=== PATIENT | male | born 1965 | race Caucasian/White ===

== ENCOUNTER → 2017-12-10 | Outpatient (CLI) | payer MEDICAID ==
[~2017-12-10] MED LIST: FURO40TA5 PO; SPIR100T3 PO
== END | disposition home or self-care (01) ==
LOC: LAB 09:45
PROVIDERS: ATTEND Internal Medicine Gastroenterology
DX: K74.60 Unspecified cirrhosis of liver (principal)
CPT/HCPCS: 36415; 82565; 84520

== ENCOUNTER → 2017-12-11 | Outpatient (CLI) | payer MEDICAID ==
[~2017-12-11] MED LIST changes: +IOPAMIDOL-370 75 ML VIAL IV ONE
== END | disposition home or self-care (01) ==
LOC: RAH 09:16
PROVIDERS: ATTEND Internal Medicine Gastroenterology
DX: D73.2 Chronic congestive splenomegaly (principal); J98.11 Atelectasis; I70.0 Atherosclerosis of aorta; M47.899 Other spondylosis, site unspecified; Z90.49 Acquired absence of other specified parts of digestive tract
CPT/HCPCS: 74170; Q9967

== ENCOUNTER → 2017-12-30 | Outpatient (CLI) | payer MEDICAID ==
[~2017-12-30] MED LIST changes: -IOPAMIDOL-370 75 ML VIAL IV ONE
== END ==
LOC: RAH 08:31
PROVIDERS: ATTEND Internal Medicine Gastroenterology
DX: K74.60 Unspecified cirrhosis of liver (principal)
CPT/HCPCS: 76700; 93975

== ENCOUNTER 2018-01-31 23:48 | Emergency (ER) | payer MEDICAID | END 2018-02-01 01:39 | disposition home or self-care (01) | LOC: EDH 23:48 | DX: M25.561 Pain in right knee (principal); Z88.6 Allergy status to analgesic agent; Z98.890 Other specified postprocedural states | CPT/HCPCS: 73562 ==

== ENCOUNTER → 2019-07-12 | Outpatient (CLI) | payer MEDICAID ==
[~2019-07-12] MED LIST changes: -SPIR100T3 PO; +SPIR100T5 PO
== END | disposition home or self-care (01) ==
LOC: RAH 08:44
PROVIDERS: ATTEND Internal Medicine Gastroenterology
DX: R16.1 Splenomegaly, not elsewhere classified (principal); K74.60 Unspecified cirrhosis of liver; Z90.49 Acquired absence of other specified parts of digestive tract
CPT/HCPCS: 76700; 93975

== ENCOUNTER 2019-07-30 05:32 | Day surgery (SDC) | payer MEDICAID ==
[~2019-07-30] VITALS: Ht 188 cm; Wt 105.7 kg
[~2019-07-30 05:32] MED LIST changes: +CALC1CAP19 PO; +LACT10SO8 PO; +NADO40TA19 PO; +PANT20TA12 PO; +RIFA550T PO; +ZINC50TA71 PO
[2019-07-30] MEDS ORDERED: SODIUM CHLORIDE 0.9% 1000ML 1,000 ML IV ONE (05:49)
[2019-07-30 06:33] VITALS: BP 120/69
[2019-07-30] MEDS ORDERED: PROPOFOL 10 MG/ML 20ML VIAL IV ONE (06:38)
[2019-07-30] MEDS ORDERED: CALC-909 PO (06:54)
[2019-07-30] MEDS ORDERED: CHOL400T4 PO (06:54)
[2019-07-30 09:32] VITALS: BP 115/84
[2019-07-30 09:37] VITALS: BP 119/81
[2019-07-30 09:41] VITALS: BP 117/87
[2019-07-30 09:48] VITALS: BP 125/72
== END 2019-07-30 09:55 | disposition home or self-care (01) ==
LOC: ENDO 05:32 → DAH 05:32 → ENDO 09:55
PROVIDERS: ATTEND Internal Medicine Gastroenterology
DX: Z12.11 Encounter for screening for malignant neoplasm of colon (principal); D12.5 Benign neoplasm of sigmoid colon; K57.30 Diverticulosis of large intestine without perforation or abscess without bleeding; K64.0 First degree hemorrhoids; K22.70 Barrett's esophagus without dysplasia; I85.00 Esophageal varices without bleeding; B18.2 Chronic viral hepatitis C; K74.60 Unspecified cirrhosis of liver; Z79.899 Other long term (current) drug therapy; I10 Essential (primary) hypertension; Z86.010 Personal history of colon polyps; Z90.49 Acquired absence of other specified parts of digestive tract; Z98.890 Other specified postprocedural states; Z88.8 Allergy status to other drugs, medicaments and biological substances
CPT/HCPCS: 45380; 88305; J2704; J7030

== ENCOUNTER 2019-12-08 05:52 | Day surgery (SDC) | payer MEDICAID ==
[~2019-12-08] VITALS: Ht 188 cm; Wt 108.9 kg
[~2019-12-08 05:52] MED LIST changes: +CALC-909 PO; +CHOL400T4 PO; +LACT10SO62 PO; -LACT10SO8 PO
[2019-12-08] MEDS ORDERED: SODIUM CHLORIDE 0.9% 1000ML 1,000 ML IV ONE (06:17)
[2019-12-08 06:23] VITALS: BP 109/73
[2019-12-08] MEDS ORDERED: SODIUM CHLORIDE 0.9% 10 ML VIAL ONE (08:09)
[2019-12-08] MEDS ORDERED: MIDAZOLAM HCL 1 MG/ML 2ML VIAL ONE (08:09)
[2019-12-08] MEDS ORDERED: PROPOFOL 10 MG/ML 20ML VIAL IV ONE (08:09)
[2019-12-08] MEDS ORDERED: LIDOCAINE HCL 2% 20ML ONE (08:09)
[2019-12-08 08:26] VITALS: BP 100/65
[2019-12-08 08:41] VITALS: BP 99/54
[2019-12-08 08:56] VITALS: BP 108/68
== END 2019-12-08 08:50 | disposition home or self-care (01) ==
LOC: ENDO 05:52 → DAH 05:52 → ENDO 08:50
PROVIDERS: ATTEND Internal Medicine Gastroenterology
DX: I85.00 Esophageal varices without bleeding (principal); K31.89 Other diseases of stomach and duodenum; K29.70 Gastritis, unspecified, without bleeding; K74.60 Unspecified cirrhosis of liver; I10 Essential (primary) hypertension; Z88.8 Allergy status to other drugs, medicaments and biological substances; Z79.899 Other long term (current) drug therapy; Z86.010 Personal history of colon polyps; Z90.49 Acquired absence of other specified parts of digestive tract; Z98.890 Other specified postprocedural states; Z72.89 Other problems related to lifestyle; Z87.891 Personal history of nicotine dependence; Z82.5 Family history of asthma and other chronic lower respiratory diseases
CPT/HCPCS: 43239; 88305; A4215; A4221; A4222; A4223; A4606; A4620; A4663; J2250; J2704; J3490; J7030

== ENCOUNTER → 2019-12-23 | Outpatient (CLI) | payer MEDICAID ==
[~2019-12-23] MED LIST changes: +GADODIAMIDE 10 MMOL/20 ML VIAL IV ONE
== END | disposition home or self-care (01) ==
LOC: RAH 07:58
PROVIDERS: ATTEND Internal Medicine Gastroenterology
DX: N28.1 Cyst of kidney, acquired (principal); R16.1 Splenomegaly, not elsewhere classified; K74.60 Unspecified cirrhosis of liver; R97.8 Other abnormal tumor markers; Z90.49 Acquired absence of other specified parts of digestive tract
CPT/HCPCS: 74183; A9579

== ENCOUNTER 2020-03-13 19:47 | Emergency (ER) | payer MEDICAID ==
[~2020-03-13 19:47] MED LIST changes: -GADODIAMIDE 10 MMOL/20 ML VIAL IV ONE
[2020-03-13] MEDS ORDERED: LIDOCAINE HCL 1% 20 ML VIAL ONE (20:06)
[2020-03-13] MEDS ORDERED: CEFAZOLIN SODIUM 1 GM VIAL ONE (21:24)
[2020-03-13] MEDS ORDERED: ACETAMINOPHEN-CODEINE 300/30MG TAB ONE (21:51)
== END 2020-03-13 22:09 | disposition home or self-care (01) ==
LOC: EDH 19:47
DX: S62.644B Nondisplaced fracture of proximal phalanx of right ring finger, initial encounter for open fracture (principal); S60.452A Superficial foreign body of right middle finger, initial encounter; Z88.6 Allergy status to analgesic agent; Z90.49 Acquired absence of other specified parts of digestive tract; W29.4XXA Contact with nail gun, initial encounter; Y92.098 Other place in other non-institutional residence as the place of occurrence of the external cause; Y99.8 Other external cause status; Y93.89 Activity, other specified
CPT/HCPCS: 29130; 73140; 96372; 99284; J0690

== ENCOUNTER → 2020-08-14 | Outpatient (CLI) | payer MEDICAID ==
[~2020-08-14] MED LIST changes: -NADO40TA19 PO; +NADO40TA2 PO; -PANT20TA12 PO; +PANT20TA18 PO
== END | disposition home or self-care (01) ==
LOC: RAH 09:43
PROVIDERS: ATTEND Internal Medicine Gastroenterology
DX: K74.60 Unspecified cirrhosis of liver (principal); R16.0 Hepatomegaly, not elsewhere classified
CPT/HCPCS: 76700; 93975

== ENCOUNTER → 2021-05-10 | Outpatient (CLI) | payer MEDICAID ==
[~2021-05-10] MED LIST changes: +GADOTERATE MEGLUMINE 10 MMOL/20 ML VIAL IV ONE
== END | disposition home or self-care (01) ==
LOC: RAH 07:46
PROVIDERS: ATTEND Internal Medicine Gastroenterology
DX: R77.2 Abnormality of alphafetoprotein (principal); K74.60 Unspecified cirrhosis of liver; R16.0 Hepatomegaly, not elsewhere classified
CPT/HCPCS: 74183; A9575

== ENCOUNTER 2021-07-03 08:00 | Day surgery (SDC) | payer MEDICAID ==
[~2021-07-03] VITALS: Ht 188 cm; Wt 113.4 kg
[~2021-07-03 08:00] MED LIST changes: +0.9%NACL 1000ML 1,000 ML IV ONE; -GADOTERATE MEGLUMINE 10 MMOL/20 ML VIAL IV ONE
[2021-07-03 09:58] VITALS: BP 150/83
[2021-07-03] MEDS ORDERED: MV-M1TAB20 PO (10:42)
[2021-07-03 12:55] VITALS: BP 101/54
[2021-07-03 13:00] VITALS: BP 107/58
[2021-07-03 13:25] VITALS: BP 118/67
== END 2021-07-03 13:48 | disposition home or self-care (01) ==
LOC: DAH 08:00 → ENDO 08:00
PROVIDERS: ATTEND Internal Medicine
DX: I85.00 Esophageal varices without bleeding (principal); K29.70 Gastritis, unspecified, without bleeding; R93.2 Abnormal findings on diagnostic imaging of liver and biliary tract; R77.2 Abnormality of alphafetoprotein; K57.30 Diverticulosis of large intestine without perforation or abscess without bleeding; I10 Essential (primary) hypertension; Z90.49 Acquired absence of other specified parts of digestive tract; Z86.010 Personal history of colon polyps; Z86.19 Personal history of other infectious and parasitic diseases; Z88.6 Allergy status to analgesic agent; Z79.899 Other long term (current) drug therapy; Z20.822 Contact with and (suspected) exposure to COVID-19
CPT/HCPCS: 43235; 87635; A4215 ×2; A4221; A4222; A4223; A4606; A4620; A4657; A4663; C9803; J7030

== ENCOUNTER 2022-10-09 10:26 | Day surgery (SDC) | payer MEDICAID ==
[2022-10-09] VITALS (9 sets, daily range): BP systolic 111–136; BP diastolic 67–85
[~2022-10-09] VITALS: Ht 190.5 cm; Wt 113.4 kg
[~2022-10-09 10:26] MED LIST changes: -0.9%NACL 1000ML 1,000 ML IV ONE; +MV-M1TAB20 PO; +NAPR-1180 PO
[2022-10-09] MEDS ORDERED: 0.9%NACL 1000ML 1,000 ML IV ONE (10:57)
[2022-10-09] MEDS ORDERED: OMEP20CA12 PO (11:40)
[2022-10-09] MEDS ORDERED: PROPOFOL 10 MG/ML 20ML VIAL IV ONE (12:21)
[2022-10-09] MEDS ORDERED: LIDOCAINE PF 100MG/5ML (2%) SYRINGE 5ML ONE (12:21)
== END 2022-10-09 23:33 | disposition home or self-care (01) ==
LOC: ENDO 10:26 → DAH 10:26 → ENDO 23:33
PROVIDERS: ATTEND Internal Medicine Gastroenterology
DX: K74.69 Other cirrhosis of liver (principal); I85.10 Secondary esophageal varices without bleeding; Z20.822 Contact with and (suspected) exposure to COVID-19; K76.6 Portal hypertension; K31.89 Other diseases of stomach and duodenum; K22.70 Barrett's esophagus without dysplasia; I10 Essential (primary) hypertension; Z90.49 Acquired absence of other specified parts of digestive tract; Z98.890 Other specified postprocedural states; Z86.19 Personal history of other infectious and parasitic diseases; Z86.16 Personal history of COVID-19; Z86.010 Personal history of colon polyps
CPT/HCPCS: 87426; 43235; J7030; J3490 ×2; A4620; A4215 ×2; A4223; A4222; A4221; A4663; A4606; J2001; J2704

== ENCOUNTER → 2023-03-24 | Outpatient (CLI) | payer MEDICAID ==
[~2023-03-24] MED LIST changes: -CALC-909 PO; -CALC1CAP19 PO; -CHOL400T4 PO; -LACT10SO62 PO; +LACT10SO95 PO; -MV-M1TAB20 PO; -NAPR-1180 PO; +OMEP20CA12 PO; -PANT20TA18 PO; -ZINC50TA71 PO
== END | disposition home or self-care (01) ==
LOC: RAH 08:02
PROVIDERS: ATTEND Internal Medicine Gastroenterology
DX: K74.60 Unspecified cirrhosis of liver (principal); Z90.49 Acquired absence of other specified parts of digestive tract
CPT/HCPCS: 76700; 93975

== ENCOUNTER 2024-05-13 05:53 | Day surgery (SDC) | payer MEDICAID ==
[2024-05-13] VITALS (10 sets, daily range): BP systolic 89–106; BP diastolic 38–68; PULSE 47–56; RESP 11–22
[~2024-05-13] VITALS: Ht 188 cm; Wt 106.6 kg
[2024-05-13] MEDS: 0.9%NACL 1000ML 1,000 ML IV ONE (06:44)
[2024-05-13] MEDS ORDERED: LIDOCAINE HCL 1% 20 ML VIAL ONE (07:43)
[2024-05-13] MEDS ORDERED: PROPOFOL 10 MG/ML 20ML VIAL IV ONE (07:43)
== END 2024-05-13 08:58 | disposition home or self-care (01) ==
LOC: SUH 05:53 → DAH 05:53 → SUH 08:58
PROVIDERS: ATTEND Internal Medicine Gastroenterology
DX: K74.69 Other cirrhosis of liver (principal); I85.10 Secondary esophageal varices without bleeding; K76.6 Portal hypertension; K31.89 Other diseases of stomach and duodenum; K22.70 Barrett's esophagus without dysplasia; R93.2 Abnormal findings on diagnostic imaging of liver and biliary tract; K72.90 Hepatic failure, unspecified without coma; R77.0 Abnormality of albumin; K64.0 First degree hemorrhoids; K57.30 Diverticulosis of large intestine without perforation or abscess without bleeding; I10 Essential (primary) hypertension; K44.9 Diaphragmatic hernia without obstruction or gangrene; K21.9 Gastro-esophageal reflux disease without esophagitis; Z88.8 Allergy status to other drugs, medicaments and biological substances; Z86.010 Personal history of colon polyps; Z86.19 Personal history of other infectious and parasitic diseases; Z82.5 Family history of asthma and other chronic lower respiratory diseases; Z80.9 Family history of malignant neoplasm, unspecified; Z79.899 Other long term (current) drug therapy; Z90.49 Acquired absence of other specified parts of digestive tract; Z98.890 Other specified postprocedural states
CPT/HCPCS: 43239; J7030 ×2; J3490; A4620; A4215; A4223; A7002; A4222; A4221; A4663; A4606; J2704